=== PATIENT | male | born 1980 | race Caucasian/White ===

== ENCOUNTER → 2016-04-27 | Outpatient (CLI) | payer BC, OTHER ==
[~2016-04-27] MED LIST: ALB0.5V NEB; ALBU0.63 IH; ALBU6.7H IH; AZIT250T5 PO; AZIT250T81 PO; AZIT500T PO; BENZ-22 PO; BUPR100T7 PO; CEFD300C PO; CHLO500T2 PO; CLIN-79 PO; FLT11013 INH; GFN600TCR PO; HYDR-3754 PO; IBUP-788 PO; LEVO500T16 PO; METH4TAB27 PO; MPR22TI TOP; NF-FLON16G; OXYC1TAB87 PO; TR1C15 TOP
[2016-04-27 11:49] VITALS: BP 138/87
--- NOTE | 2016-04-27 11:49 | Urgent Care T Sheet Gen (E) ---
Intake General Temperature (Fahrenheit): 98.3 Pulse: 68 Blood Pressure Systolic: 138 Blood Pressure Diastolic: 87 Respirations: 20 SPO2: 98 Description of Symptoms patient presents with illness x 7 weeks. Notes nasal congestion and cough, which is mostly dry. Been taking DayQuil, NyQuil and just started using Afrin nasal spray. Does have asthma for which he has been doing his daily regimen including breathing treatments and rescue inhaler. States his cough is quite forceful and causes chest wall pain. No fever during the illness. History of Present Illness Allergies: Coded Allergies: Penicillins (Unverified Allergy, Unknown, 09/03/14) Sulfa (Sulfonamide Antibiotics) (Unverified Allergy, Unknown, 09/03/14) bee venom (honey bee) (Unverified Allergy, Unknown, 09/03/14) wasp venom (Unverified Allergy, Unknown, 09/03/14) Home Meds Active Scripts Clindamycin HCl 300 Mg [id number] Mg PO QID #28 CAP Prov:SEBAS CLARK MD 09/03/14 Triamcinolone Acet (Kenalog 0.1% Cream)15 Gm Cr1 Applic TOP BID #1 TUBE Ref 1 Prov:SEBAS CLARK MD 09/03/14 Mupirocin (Mupirocin Ointment)22 Gm Oint...g.1 Applic TOP BID #1 TUBE Prov:SEBAS CLARK MD 09/03/14 Fluticasone Propionate (Flonase 0.05% Nasal [place])16 Gm Spray2 Sprays NA DAILY # 1 SPRAY Prov:NICK JOHNSON DO 04/17/14 Reported Medications Albuterol Sulfate 0.63 Mg/3 Ml Vial.neb0.63 Mg IH QID 03/02/13 Albuterol Sulfate (Proventil HFA)6.7 Gm Hfa.aer.ad6.7 Gm IH NEEDED 03/02/13 Fluticasone Propionate (Flovent HFA 110mcg Inhaler)1 Ea Aero2 Ea INH BID 08/23/12 Respiratory Constitutional Symptoms: No Fever, Malaise EENTM: Nose Congestion Respiratory: Cough Short of breathNo Wheezing Cardiovascular: No symptoms reported Gastrointestinal/Abdominal: No symptoms reported All Other Systems Reviewed Remaining Systems: All other systems reviewed with negative findings Past Twzekaf-Wxxmxf-Fymsdr Hx Patient's Social History Infectious Disease Exposure: No Recent foreign travel: No Surgeries/Hospitalizations Hospitalization/Surgery Hx: APPY, T&A'EAR TUBES,PNUEMONIA, LT LEG ABCESS Respiratory Respiratory History: None Cardiovascular Cardiovascular History: None Comment: denies Neuro/Muscular Neuro/Muscular History: Visual impairment, Other, see commnent Comment: Wears Glasses, Peripheral Neuopathy Reproductive System Sexually Transmitted Diseases: No Genitouinary Genitourinary History: None Gastrointestinal GI/Endocrine History: None Diabetes Diabetes: No HEENT Impaired Vision: None Hearing Impaired: None Integumentary Integumentary History: Other, see comments Comment: blister on the back of right heel Cancer History of Cancer?: No Psychosocial Behavior Disorders: None Blood Transfusions Reaction to blood transfusion: No Physical Exam Physical Exam General Appearance: WD/WN No apparent distress Eyes, Ears, Nose, Throat Ex: TMs normal Pharyngeal erythema (irritated, not necessarily infected.) Other (red, swollen nasal turbinates with purulent drainage) Neck Exam: SuppleNo Lymphadenopathy Respiratory Exam: Lungs clear (forceful cough throughout exam.)No Rhonchi, No Wheezes Cardiovascular Exam: Regular rate, rhythm Departure Urgent Care Impression Impression: Primary Impression: Sinusitis Qualified Code: J01.00 - Acute maxillary sinusitis, unspecified Additional Impressions: Cough History of asthma Departure Disposition: 01 HOME OR SELF-CARE Condition: Stable Referrals: DEDRA PANG MD (PCP) Additional Instructions: While his lungs were clear and without wheezes, his cough is quite forceful and persistent. I believe his chest wall pain is due to inflammation/irritation. I have started him on a Z-pack for infection. Somewhat limited due to his allergies. I also prescribed a Medrol dose pack and Tessalon pearls as needed for cough. May DC OTC cold meds. Return as needed Continue with asthma meds as directed Patient understands DC instructions. All questions were answered. Scripts Methylprednisolone (Medrol Dosepack)21 Tab/Pkt Tablet6 Tab PO DAILY Inflammation #1 PKT Ref 0 Take 6 tabs po on day 1 then decrease by 1 tab daily until packet is gone. Prov:THAO YUAN 04/27/16 Benzonatate (Tessalon Perles)100 Mg [id number] Mg PO TID PRN COUGH #30 CAP Prov:THAO YUAN 04/27/16 Azithromycin (Zithromax Z-Carson)6 Tab/Pkt [id number] Mg PO SEE INSTRUCTIONS #6 TAB Ref 0 Day One: Take 2 tablets by mouth Days Two-Five: Take 1 tablet by mouth Prov:THAO YUAN 04/27/16 End of report . THAO YUAN Apr 27, 2016 11:49
== END ==
LOC: MHUC 11:24
PROVIDERS: ATTEND Physician Assistant
DX: J01.00 Acute maxillary sinusitis, unspecified (principal); R05 Cough
CPT/HCPCS: 99213

== ENCOUNTER → 2016-05-15 | Outpatient (REF) | payer BC | LOC: LAB 15:34 | PROVIDERS: ATTEND Family Medicine | DX: R73.09 Other abnormal glucose (principal) | CPT/HCPCS: 83036 ==